=== PATIENT | male | born 1935 | race Caucasian/White ===

== ENCOUNTER 2020-07-18 20:00 | Outpatient (CLI) | payer MEDICARE, OTHER, SELFPAY | END 2020-07-18 20:01 | disposition home or self-care (01) | LOC: SLEEP 07-19 10:18 | PROVIDERS: Visit Provider Family Medicine | DX: G47.30 Sleep apnea, unspecified (principal); G47.34 Idiopathic sleep related nonobstructive alveolar hypoventilation | CPT/HCPCS: 95810 ==

== ENCOUNTER 2025-08-05 18:22 | Outpatient (CLI) | payer MEDICARE, OTHER, SELFPAY ==
[2025-08-05 19:00] LABS: Glucose Urine UA Negative (Normal); Nitrate Urine Positive (Negative); Specific Gravity, Urine 1.022 (1.005-1.030)
[2025-08-05 19:05] LABS: Add Urine Microscopic? YES; Universal Test for UA Present (0)
== END 2025-08-05 18:23 | disposition home or self-care (01) ==
PROVIDERS: Visit Provider Family Medicine
DX: Z01.89 Encounter for other specified special examinations (principal)
CPT/HCPCS: 81001; 87077; 87086; 87186